=== PATIENT | male | born 1980 | race Caucasian/White ===

== ENCOUNTER → 2023-12-17 16:48 | Outpatient (REF) | payer BC, SELFPAY | LOC: RAD 16:48 | PROVIDERS: ATTENDING PHYSICIAN Physician Assistant Medical | DX: M25.552 Pain in left hip (principal) | CPT/HCPCS: 73502 ==

== ENCOUNTER → 2024-04-22 08:25 | Outpatient (REF) | payer BC, SELFPAY | LOC: RCS 08:25 | PROVIDERS: ATTENDING PHYSICIAN Internal Medicine; FAMILY PHYSICIAN Physician Assistant Medical | DX: R00.0 Tachycardia, unspecified (principal) | CPT/HCPCS: 93225; 93226 ==

== ENCOUNTER → 2024-06-10 12:34 | Outpatient (REF) | payer BC, SELFPAY ==
--- NOTE | 2024-06-10 14:03 | CARDSERVLU ---
Echocardiogram with Lumason completed after protocol screening completed. Allergies verified.
Patent IV site: Rt AC___
IV site flushed with 0.9% NaCl pre and post administration.
Diluted bolus method utilized to enhance visualization of ventricular luna.
Total volume given: __4.0 mL
Patient tolerated all procedures well without complications.
#22 sergio placed Rt AC. Lumason given. INT removed. dsg applied, no bleeding noted.
== END ==
LOC: RCS 12:34
PROVIDERS: ATTENDING PHYSICIAN Internal Medicine; FAMILY PHYSICIAN Physician Assistant Medical
DX: I47.11 Inappropriate sinus tachycardia, so stated (principal)
CPT/HCPCS: 93307; Q9957